=== PATIENT | female | born 1965 | race Caucasian/White ===

== ENCOUNTER → 2021-04-30 | Outpatient (CLI) | payer BC, OTHER ==
[~2021-04-30] MED LIST: NAPROXEN SODIU220 M1 PO; VITAMIN B-121000 MC1 PO; VITAMIN D50000 UNIT PO
== END ==
LOC: RAD 15:32
DX: M79.642 Pain in left hand (principal)
CPT/HCPCS: 73130

== ENCOUNTER → 2021-08-17 | Outpatient (CLI) | payer BC ==
[2021-08-17 08:30] LABS: HEMOGLOBIN 13.2 gm/dl (12.3-15.3); RED BLOOD COUNT 4.46 M/UL (4.00-5.10); WHITE BLOOD COUNT 6.6 K/UL (4.5-11.0)
[2021-08-17 08:56] LABS: BUN/CREATININE RATIO 15 (0-10)
== END ==
LOC: LAB 07:31
PROVIDERS: Physician Assistant
DX: Z13.1 Encounter for screening for diabetes mellitus (principal); D53.1 Other megaloblastic anemias, not elsewhere classified; E78.2 Mixed hyperlipidemia; E55.9 Vitamin D deficiency, unspecified; E89.2 Postprocedural hypoparathyroidism
CPT/HCPCS: 36415; 80053; 80061; 82607; 83036; 84439; 84443; 85025

== ENCOUNTER 2022-08-13 15:58 | Emergency (ER) | payer OTHER ==
[2022-08-13 16:57] LABS: HEMOGLOBIN 13.9 gm/dl (12.3-15.3); RED BLOOD COUNT 4.53 M/UL (4.00-5.10); WHITE BLOOD COUNT 7.9 K/UL (4.5-11.0)
[2022-08-13 17:29] LABS: BUN/CREATININE RATIO 20 (0-10)
== END 2022-08-13 21:01 | disposition home or self-care (01) ==
LOC: ER1 15:58
PROVIDERS: Emergency Medicine
DX: R07.81 Pleurodynia (principal)
CPT/HCPCS: 71045; 80053; 82550; 82553; 84484; 85025; 93005; 99285

== ENCOUNTER → 2022-08-19 | Outpatient (CLI) | payer OTHER | LOC: US 08:47 | DX: R10.11 Right upper quadrant pain (principal); K21.9 Gastro-esophageal reflux disease without esophagitis; K80.20 Calculus of gallbladder without cholecystitis without obstruction; K76.0 Fatty (change of) liver, not elsewhere classified | CPT/HCPCS: 76700 ==